=== PATIENT | female | born 1985 | race Caucasian/White ===

== ENCOUNTER → 2021-10-31 | Outpatient (CLI) | payer OTHER | LOC: KOH-I 10:44 | DX: S99.921A Unspecified injury of right foot, initial encounter (principal); M19.071 Primary osteoarthritis, right ankle and foot | CPT/HCPCS: 73610; 73630 ==

== ENCOUNTER → 2021-11-07 | Outpatient (CLI) | payer OTHER | LOC: EXRD 10:06 | DX: S99.921A Unspecified injury of right foot, initial encounter (principal) | CPT/HCPCS: 73620 ==